=== PATIENT | female | born 1945 | race Asian ===

== ENCOUNTER 2018-12-23 12:52 | Outpatient (CLI) | payer MEDICARE, OTHER ==
--- NOTE | 2018-12-23 14:03 | MRI ---
EXAM: MRI right knee PROVIDED CLINICAL HISTORY: Pain COMPARISON: None FINDINGS: The anterior cruciate ligament, posterior cruciate ligament, medial collateral ligament and lateral c ollateral ligamentous complex demonstrate an intact MR appearance, as does the extensor mechanism. Evaluation of the menisci is limited by patient motion. No definite evidence for meniscal tear. Advanced full-thickness articular cartilage loss involves the median ridge and lateral facet of the p atella as well as the lateral aspects of the trochlea. Osteophyte formation is seen about the knee. Femorotibial articular cartilage appears grossly preserved. The amount of fluid within the knee joint appears physiologic. No focal concerning regional marrow or muscular signal abnormality apparent. Benign-appearing cystlik e focus within the proximal fibula. IMPRESSION: Advanced patellofemoral degenerative arthrosis.
== END 2018-12-23 12:53 | disposition home or self-care (01) ==
LOC: TBSIIMAG 12:52
PROVIDERS: ATTEND Family Medicine
DX: M17.11 Unilateral primary osteoarthritis, right knee (principal)

== ENCOUNTER 2019-05-25 15:20 | Outpatient (CLI) | payer MEDICARE, OTHER ==
--- NOTE | 2019-05-25 17:22 | BD ---
BONE DENSITOMETRY USING DEXA: Date: 05/25/2019 HISTORY: Postmenopausal screening for osteoporosis. FINDINGS: Lumbar Spine: BMD (g/cm2) L1 0.861 T-Score: -1.2 Z-Score: 0.8 L2 0.863 T-Score: -1.5 Z-Score: 0.7 L3 0.908 T-Score: -1.6 Z-Score: 0.7 L4 0.950 T-Score: -1.0 Z-Score: 1.4 L1-L4 0.900 T-Score: -1.3 Z-Score: 0.9 Femoral Neck: 0.697 T-Score: -1.4 Z-Score: 0.6 Total Femur: 0.919 T-Score: -0.2 Z-Score: 1.4 The 10 year fracture risk for a major osteoporotic fracture is 8.8% and for a hip fracture is 1.2%. IMPRESSION: Osteopenia. POS: MIKE
--- NOTE | 2019-06-01 13:26 | MMO ---
Bilateral MAMMO Bilat Screen [facility]. CLINICAL HISTORY: Patient is 73 years old and is seen for screening. The patient has the following family history of breast cancer: mother. The patient has a history of uterine cancer. VIEWS: The views performed were: bilateral craniocaudal with tomosynthesis and bilateral mediolateral oblique with tomosynthesis. FILMS COMPARED: The present examination has been compared to prior imaging studies performed at on 12/14/2014 and 02/14/2016. This study has been interpreted with the assistance of computer-aided detection. MAMMOGRAM FINDINGS: There are scattered fibroglandular densities. There are stable benign appearing calcifications seen in both breasts. There are no suspicious masses, suspicious calcifications, or new areas of architectural distortion. IMPRESSION: THERE IS NO MAMMOGRAPHIC EVIDENCE OF MALIGNANCY. A ROUTINE FOLLOW-UP MAMMOGRAM IN 1 YEAR IS RECOMMENDED. THE RESULTS OF THIS EXAM WERE SENT TO THE PATIENT. ACR BI-RADS Category 2 - Benign finding MAMMOGRAPHY NOTE: 1. A negative mammogram report should not delay a biopsy if a dominant of clinically suspicious mass is present. 2. Approximately 10% to 15% of breast cancers are not detected by mammography. 3. Adenosis and dense breasts may obscure an underlying neoplasm. Reported by: JOE WASHINGTON MD Electonically Signed: [id number]
== END 2019-05-25 15:21 | disposition home or self-care (01) ==
LOC: BICMAMMO 15:20
PROVIDERS: ATTEND Family Medicine
DX: Z12.31 Encounter for screening mammogram for malignant neoplasm of breast (principal); M81.0 Age-related osteoporosis without current pathological fracture; M85.89 Other specified disorders of bone density and structure, multiple sites; Z80.3 Family history of malignant neoplasm of breast; Z85.42 Personal history of malignant neoplasm of other parts of uterus
CPT/HCPCS: 77063; 77067; 77080

== ENCOUNTER 2019-10-19 12:18 | Outpatient (CLI) | payer MEDICARE, OTHER ==
--- NOTE | 2019-10-19 12:57 | RAD ---
Cervical spine 4 views HISTORY: Neck pain. FINDINGS: Vertebral body heights are maintained. There is straightening of the normal lordotic curvat ure. Disc space narrowing and osteophytosis are most pronounced at the C5-6 level. Cervicothoracic junction is intact. Osteophytosis throughout the vertebral bodies and facets. No acute fracture or di slocation evident. IMPRESSION : Osseous degenerative changes are most pronounced at the C5-6 level. No acute osseous abnormalities ar e demonstrated.
== END 2019-10-19 12:19 | disposition home or self-care (01) ==
LOC: BICRAD 12:18
PROVIDERS: ATTEND Family Medicine
DX: M54.2 Cervicalgia (principal); M47.812 Spondylosis without myelopathy or radiculopathy, cervical region
CPT/HCPCS: 72040

== ENCOUNTER 2021-01-06 15:58 | Outpatient (CLI) | payer MEDICARE, OTHER | END 2021-01-06 15:59 | disposition home or self-care (01) | LOC: BICMAMMO 15:58 | PROVIDERS: ATTEND Family Medicine | DX: Z12.31 Encounter for screening mammogram for malignant neoplasm of breast (principal); Z80.3 Family history of malignant neoplasm of breast; Z85.42 Personal history of malignant neoplasm of other parts of uterus | CPT/HCPCS: 77063; 77067 ==

== ENCOUNTER 2021-05-09 15:23 | Outpatient (CLI) | payer MEDICARE, OTHER | END 2021-05-09 15:24 | disposition home or self-care (01) | LOC: RAD 15:23 | PROVIDERS: ATTEND Family Medicine | DX: R68.84 Jaw pain (principal) | CPT/HCPCS: 70110 ==

== ENCOUNTER 2022-08-04 14:42 | Outpatient (CLI) | payer MEDICARE, OTHER | END 2022-08-04 14:43 | disposition home or self-care (01) | LOC: BICRAD 14:42 | PROVIDERS: ATTEND Nurse Practitioner Family | DX: R05.1 Acute cough (principal) | CPT/HCPCS: 71046 ==

== ENCOUNTER 2023-05-24 14:01 | Outpatient (CLI) | payer MEDICARE, OTHER | END 2023-05-24 14:02 | disposition home or self-care (01) | LOC: BICRAD 14:01 | PROVIDERS: ATTEND Family Medicine | DX: M25.561 Pain in right knee (principal); M17.11 Unilateral primary osteoarthritis, right knee ==

== ENCOUNTER 2024-06-15 11:21 | Outpatient (CLI) | payer MEDICARE, OTHER | END 2024-06-15 11:22 | disposition home or self-care (01) | LOC: BICRAD 11:21 | PROVIDERS: ATTEND Surgery | DX: R10.9 Unspecified abdominal pain (principal); K63.89 Other specified diseases of intestine | CPT/HCPCS: 74019 ==

== ENCOUNTER 2025-04-09 14:18 | Outpatient (CLI) | payer MEDICARE, OTHER | END 2025-04-09 14:19 | disposition home or self-care (01) | LOC: BICRAD 14:18 | PROVIDERS: ATTEND Family Medicine | DX: R10.A2 Flank pain, left side (principal); M47.816 Spondylosis without myelopathy or radiculopathy, lumbar region; M47.817 Spondylosis without myelopathy or radiculopathy, lumbosacral region; M48.061 Spinal stenosis, lumbar region without neurogenic claudication; M48.07 Spinal stenosis, lumbosacral region | CPT/HCPCS: 72100 ==